=== PATIENT | female | born 1930 | race Caucasian/White ===

== ENCOUNTER 2017-04-07 11:51 | Outpatient (CLI) | payer MEDICARE, OTHER | END 2017-04-07 11:55 | LOC: D.MAMMO 11:51 | DX: Z12.31 Encounter for screening mammogram for malignant neoplasm of breast (principal) ==

== ENCOUNTER → 2018-08-12 11:42 | Outpatient (CLI) | payer MEDICARE, OTHER | END | disposition home or self-care (01) | LOC: D.RAD 11:42 | DX: M79.672 Pain in left foot (principal) ==

== ENCOUNTER → 2018-12-21 08:24 | Outpatient (CLI) | payer MEDICARE, OTHER ==
--- NOTE | 2018-12-23 13:10 | EC ---
PATIENT:NORMAN LEMUS DATE OF SERVICE: 12/21/18 SEX: F MEDICAL RECORD: [id number] DATE OF : 34 [facility] AGE OF PATIENT: 88 ADMISSION DATE: 12/21/18 REFERRING PHYSICIAN: INTERPRETING PHYSICIAN: VICKY MORLEY MD ECHOCARDIOGRAM REPORT ECHO CHARGES 4 ECHO COMPLETE Date: 12/21/18 CLINICAL DIAGNOSIS: HTN HX OF AFIB/MR/TR ECHOCARDIOGRAPHIC MEASUREMENTS (adult normal given) AC root (d.<3.7cm) 3.3 cm LV Septum d (<1.2 cm> 1.4 cm Valve Excursion 1.4 cm LV Septum (systole) 1.6 cm Left Atria (s.<4.0cm> 4.0 cm LVPW d(<1.2cm) 1.4 cm RV (d.<2.3cm) 3.8 cm LVPW (sytole) 1.8 cm LV diastole(<5.6CM) 4.8 cm MV E-F(>70mm/sec) cm LV systole 3.6 cm LVOT Diameter 1.7 cm MV exc.(>10mm) 1.6 cm Est.ejection fraction (50-75%) % DOPPLER: LVIT cm/sec A 42.0 cm/sec E 113 cm/sec LA cm/sec RVSP 45 mmHg LVOT 110 cm/sec AOP1/2T m/s Asc. Ao 146 cm/sec RVOT 73 cm/sec RA cm/sec PA 119 cm/sec AV Gradient Peak 8.52 mmHg AV Mean 4.68 mmHg AV Area 1.8 cm MV Gradient Peak 7.62 mmHg MV Mean 1.94 mmHg MV Area cm COMMENTS: Underlay Stitcher: 2 CATY EID Apron Trimmer: 3 Dr. [place] TAPE# PACS Pericardial Effusion N DATE OF SERVICE: Adequate 2D echo, color flow, spectral Doppler, and M-mode. Mild LVH. LV internal dimension is normal. Wall motion is normal. EF is greater than 55%. Aortic valve is tricuspid. No evidence of stenosis by Doppler interrogation. Left atrium upper limits of normal 4.0 cm. Mitral valve shows no prolapse. Mild MR. Right-sided chamber is grossly normal. Mild TR. TRANSINT:[id number] Voice Confirmation ID: [id number] DOCUMENT ID: [id number] ECHOCARDIOGRAM REPORT [id number] NORMAN LEMUS GREGORY A MD at 1310 CC: [id number] DICTATION DATE: 12/22/18 1355 EMERGENCY VETERINARY TECHNICIAN: 12/22/18 2343 DEP CLI 12/21/18 [facility] [address] [id number]
== END | disposition home or self-care (01) ==
LOC: D.HCCARDIO 08:24
PROVIDERS: ATTEND Internal Medicine Interventional Cardiology
DX: I10 Essential (primary) hypertension (principal)

== ENCOUNTER → 2019-09-27 21:00 | Outpatient (CLI) | payer MEDICARE, OTHER | END | disposition home or self-care (01) | LOC: D.MAMMO 11:00 | PROVIDERS: ATTEND Family Medicine | DX: Z12.31 Encounter for screening mammogram for malignant neoplasm of breast (principal) ==